=== PATIENT | male | born 1990 | race Caucasian/White ===

== ENCOUNTER 2018-12-11 01:40 | Emergency (ER) | payer SELFPAY ==
--- NOTE | 2018-12-11 01:58 | EDM.PDOC ---
ED HPI GENERAL MEDICAL PROBLEM - General Chief Complaint: Lower Extremity Injury/Pain Stated Complaint: FOOT PAIN Time Seen by Provider: 12/11/18 01:58 - History of Present Illness INITIAL COMMENTS - FREE TEXT/NARRATIVE: 28-year-old male presents emergency room with left foot pain. The patient has had gout in his left knee in the past. This was treated with colchicine 2 doses and he did well with this. This is the first attack is had his foot. It is at the metatarsal phalangeal joint of the great toe. It is been getting worse over the last couple of days it is quite severe at this time. Patient denies any fevers or chills. Patient denies any history of diabetes he thinks he does have high blood pressure however. Family history is unremarkable. The patient does not smoke or use illicit drugs and he avoids alcohol. Left Foot Pain Score (Numeric/FACES): 10 - Related Data Allergies Allergy/AdvReac Type Severity Reaction Status Date / Time No Known Allergies Allergy Verified 12/11/18 01:53 Home Meds: Home Meds Colchicine [Colcrys] 0.6 mg PO Q12H #6 tablet 12/11/18 [Rx] Naproxen [Naprosyn] 500 mg PO Q12H #14 tablet 12/11/18 [Rx] Past Medical History Musculoskeletal History: Reports: Gout Social & Family History - Tobacco Use Smoking Status *Q: Never Smoker Review of Systems - Review of Systems Review Of Systems: See Below Constitutional: Reports: No Symptoms Respiratory: Reports: No Symptoms Cardiovascular: Reports: No Symptoms GI/Abdominal: Reports: No Symptoms Genitourinary: Reports: No Symptoms Musculoskeletal: Reports: No Symptoms Neurological: Reports: No Symptoms ED EXAM, GENERAL - Physical Exam Exam: See Below Exam Limited By: No Limitations General Appearance: Alert Head: Atraumatic, Normocephalic Neck: Normal Inspection, Supple, Non-Tender, Full Range of Motion Respiratory/Chest: No Respiratory Distress, Lungs Clear, Normal Breath Sounds Cardiovascular: Regular Rate, Rhythm, No Edema, No Murmur Extremities: Other (Family issues left foot show some redness around the metatarsal phalangeal joint of the great toe it is very tender with palpation neurovascular status is otherwise intact) Course - Vital Signs Last Recorded V/S: Last Vital Signs Temp 36.5 C 12/11/18 01:50 Pulse 111 H 12/11/18 01:50 Resp 16 12/11/18 01:50 BP 170/93 H 12/11/18 01:50 Pulse Ox 95 12/11/18 01:50 - Orders/Labs/Meds Labs: Laboratory Tests 12/11/18 Range/Units 02:12 Sodium 137 (136-145) mEq/L Potassium 4.0 (3.5-5.1) mEq/L Chloride 103 (98-107) mEq/L Carbon Dioxide 27 (21-32) mEq/L Anion Gap 11.0 (5-15) BUN 11 (7-18) mg/dL Creatinine 0.8 (0.7-1.3) mg/dL Est Cr Clr Drug Dosing 156.75 mL/min Estimated GFR (MDRD) > 60 (>60) mL/min BUN/Creatinine Ratio 13.8 L (14-18) Glucose 139 H (74-106) mg/dL Uric Acid 8.3 H (3.5-7.2) mg/dL Calcium 10.0 (8.5-10.1) mg/dL Meds: Medications Discontinued Medications Generic Name Dose Route Start Last Admin Trade Name Freq PRN Reason Stop Dose Admin Colchicine 0.6 mg 12/11/18 02:19 12/11/18 02:24 Colcrys PO 12/11/18 02:20 0.6 mg ONETIME ONE Administration Ketorolac Tromethamine 15 mg 12/11/18 02:03 12/11/18 02:12 Toradol IVPUSH 12/11/18 02:04 15 mg ONETIME ONE Administration Ketorolac Tromethamine 15 mg 12/11/18 02:44 12/11/18 02:49 Toradol IVPUSH 12/11/18 02:45 15 mg ONETIME ONE Administration - Re-Assessments/Exams Free Text/Narrative Re-Assessment/Exam: 12/11/18 03:19 Patient received colchicine upon arrival here as well as 15 mg of Toradol Toradol helped very little this was repeated and now is getting pretty good relief his pain started about of 5 or 6. We'll re-dose the colchicine. Departure - Departure Time of Disposition: 03:20 Disposition: Home, Self-Care 01 Clinical Impression: Acute gout - Discharge Information Prescriptions: Colchicine [Colcrys] 0.6 mg PO Q12H #6 tablet Naproxen [Naprosyn] 500 mg PO Q12H #14 tablet Referrals: PCP,None [Primary Care Provider] - Forms: ED Department Discharge, ED Return to Work/School Form Additional Instructions: Return to the emergency room with any questions problems or worsening symptoms. Take medications as directed. Follow-up in the Hospital clinic this next week [phone]
[2018-12-11] MEDS ORDERED: Ketorolac 15 MG/ML SDV IVPUSH ONE ×2 (02:03→02:44)
[2018-12-11] MEDS ORDERED: Colchicine 0.6 MG Tab PO ONE ×2 (02:19→03:19)
== END 2018-12-11 03:35 | disposition home or self-care (01) ==
LOC: JD.ED 01:40
DX: M10.9 Gout, unspecified (principal)
CPT/HCPCS: 36415; 80048; 84550; 96374; 96376; 99283; A9270; J1885